=== PATIENT | male | born 1970 ===

== ENCOUNTER 2017-11-16 15:44 | Emergency (ER) | payer OTHER ==
[2017-11-16 15:47] VITALS: RESP 18; TEMP 98.4
[2017-11-16] MEDS ORDERED: TDAP Vaccine 0.5 mL Syr IM ONE (15:53)
--- NOTE | 2017-11-16 16:03 | ED PDOC ---
Arrival/HPI - General Chief Complaint: Abnormal Skin Integrity Time Seen by Provider: 11/16/17 15:50 Historian: Patient - History of Present Illness Narrative History of Present Illness (Text): 11/16/17 16:00 Ghulam Gilmore is a 47 year old male who presents to the emergency department complaining of laceration to left ear and chin after scaffolding fell on him prior to arrival. Patient denies any loss of consciousness or any other complaints at this time. Time/Duration: Prior to Arrival Symptom Onset: Sudden Symptom Course: Improving Activities at Onset: Light Context: Work Past Medical History - Provider Review Nursing Documentation Reviewed: Yes - Psychiatric Hx Psychophysiologic Disorder: No Hx Substance Use: Yes Family/Social History - Physician Review Nursing Documentation Reviewed: Yes Family/Social History: No Known Family HX Smoking Status: Never Smoked Hx Alcohol Use: Yes Frequency of alcohol use: Socially Hx Substance Use: Yes Allergies/Home Meds Allergies/Adverse Reactions: Allergies No Known Allergies Allergy (Verified 11/16/17 15:47) Review of Systems - Physician Review All systems were reviewed & negative as marked: Yes - Review of Systems Constitutional: absent: Fevers, Night Sweats Eyes: absent: Vision Changes ENT: absent: Hearing Changes Respiratory: absent: SOB, Cough Cardiovascular: absent: Chest Pain Gastrointestinal: absent: Abdominal Pain Genitourinary Male: absent: Dysuria, Frequency Musculoskeletal: absent: Arthralgias Skin: Laceration (to left ear and chin) Neurological: absent: Headache, Dizziness Endocrine: absent: Diaphoresis Hemo/Lymphatic: absent: Adenopathy Psychiatric: absent: Anxiety, Depression Physical Exam Vital Signs Reviewed: Yes Vital Signs Temp Pulse Resp BP Pulse Ox 11/16/17 21:33 81 18 135/88 99 11/16/17 17:12 86 18 135/86 100 11/16/17 15:46 98.4 F 92 H 18 137/91 H 100 Temperature: Afebrile Blood Pressure: Hypertensive Pulse: Tachycardic Respiratory Rate: Normal Appearance: Positive for: Well-Appearing, Non-Toxic, Comfortable Pain Distress: None Mental Status: Positive for: Alert and Oriented X 3 - Systems Exam Head: Present: Atraumatic, Normocephalic Pupils: Present: PERRL Extroacular Muscles: Present: EOMI Conjunctiva: Present: Normal Mouth: Present: Moist Mucous Membranes Neck: Present: Normal Range of Motion Respiratory/Chest: Present: Clear to Auscultation, Good Air Exchange. No: Respiratory Distress, Accessory Muscle Use Cardiovascular: Present: Regular Rate and Rhythm, Normal S1, S2. No: Murmurs Abdomen: No: Tenderness, Distention, Peritoneal Signs Back: Present: Normal Inspection Upper Extremity: Present: Normal Inspection. No: Cyanosis, Edema Lower Extremity: Present: Normal Inspection. No: Edema Neurological: Present: GCS=15, CN II-XII Intact, Speech Normal Skin: Present: Laceration (2 cm deep laceration inferior to lower lip and a small 0.5 cm laceration to antihelix of left ear) Psychiatric: Present: Alert, Oriented x 3, Normal Insight, Normal Concentration Medical Decision Making ED Course and Treatment: 11/16/17 16:02 Impression: 47 year old female complaining of laceration to left ear and chin due to a falling scaffold prior to arrival. Plan: -- Head CT w/o contrast -- Boostrix Shot -- Reassess and disposition Progress Notes: 11/16/17 19:14 CT HEAD WITHOUT CONTRAST: Creator : Zoraida Gibson MD IMPRESSION: No acute intracranial abnormality. 11/16/17 19:15 CT MAXILLOFACIAL BONES WITHOUT CONTRAST: Creator : Zoraida Gibson MD IMPRESSION: No acute mandibular or maxillofacial fracture. Soft tissue swelling, laceration and soft tissue emphysema overlying the mandible. 11/23/17 07:48 laceration closed by surgical services asst dr cuello. advised 2 day wound check prophalactic antibiotics ordered - RAD Interpretation Radiology Orders: 11/16/17 15:52 HEAD W/O CONTRAST [CT] Stat 11/16/17 16:28 MAXILLOFACIAL W/O CONTRAST [CT] Stat - Medication Orders Current Medication Orders: Discontinued Medications Bupivacaine HCl (Marcaine 0.25%) 20 ml IJ STAT STA Stop: 11/16/17 18:00 Lidocaine HCl (Lidocaine 1% (20ml)) 5 ml IJ STAT STA Stop: 11/16/17 16:25 Lidocaine/Epinephrine (Lidocaine 1%/Epinephrine 1:[id number] 30 Ml) 30 ml IJ ONCE ONE Stop: 11/16/17 16:25 Morphine Sulfate (Morphine) 5 mg IM STAT STA Stop: 11/16/17 17:38 Last Admin: 11/16/17 17:57 Dose: 5 mg MAR Pain Assessment Document 11/16/17 17:57 GEOVANNA (Rec: 11/16/17 17:58 GEOVANNA [id number]) Pain Reassessment Is this a pain reassessment? Yes Presence of Pain Presence of Pain Yes Pain Scale Used Pain Scale Used Numeric Location Upper or Lower Lower Pain Location Body Site Face Description Intensity of Pain at present 10 IM Administration Charges Document 11/16/17 17:57 GEOVANNA (Rec: 11/16/17 17:58 GEOVANNA [id number]) Injection Site MAR Injection Site Right Deltoid Charges for Administration # of IM Administrations 1 Morphine Sulfate (Morphine) 5 mg IM STAT STA Stop: 11/16/17 18:55 Last Admin: 11/16/17 19:00 Dose: 5 mg MAR Pain Assessment Document 11/16/17 19:00 GEOVANNA (Rec: 11/16/17 19:01 GEOVANNA [id number]) Pain Reassessment Is this a pain reassessment? Yes Presence of Pain Presence of Pain Yes Pain Scale Used Pain Scale Used Numeric Location Upper or Lower Lower Pain Location Body Site Face Description Intensity of Pain at present 10 IM Administration Charges Document 11/16/17 19:00 GEOVANNA (Rec: 11/16/17 19:01 GEOVANNA [id number]) Injection Site MAR Injection Site Right Deltoid Charges for Administration # of IM Administrations 1 Tetanus/Reduced Diphtheria/Acell Pertussis (Boostrix Vaccine Inj) 0.5 ml IM .ONCE ONE Stop: 11/16/17 15:54 Last Admin: 11/16/17 16:02 Dose: 0.5 ml - Scribe Statement The provider has reviewed the documentation as recorded by the Paula Brunner Provider Scribe Attestation: All medical record entries made by the [place] were at my direction and personally dictated by me. I have reviewed the chart and agree that the record accurately reflects my personal performance of the history, physical exam, medical decision making, and the department course for this patient. I have also personally directed, reviewed, and agree with the discharge instructions and disposition. Disposition/Present on Arrival - Present on Arrival Any Indicators Present on Arrival: No History of DVT/PE: No History of Uncontrolled Diabetes: No Urinary Catheter: No History of Decub. Ulcer: No History Surgical Site Infection Following: None - Disposition Have Diagnosis and Disposition been Completed?: Yes Diagnosis: Fall, Laceration Disposition: HOME/ ROUTINE Disposition Time: 07:00 Condition: STABLE Discharge Instructions (ExitCare): Laceration Repair, Closed Head Injury, Preventing Falls Print Language: ANGUILLAN Additional Instructions: please have your wounds rechecked in er or with your pmd/clinic in 48 hours. please follow up with specialist. return to any er with any worsening symptoms or concerns. Prescriptions: Cephalexin [cephalexin] 500 mg PO QID #28 cap Naproxen 500 mg PO BID PRN #14 tablet.dr ZIMMER Reason: Pain, Mild (1-3) Referrals: [facility] [Outside] - Follow up with primary [facility] [place] - Follow up with primary Doron Ren DO [Staff Provider] - Follow up with primary Forms: [email or web address] ([place])
[2017-11-16] MEDS ORDERED: Lidocaine 1% Inj (20ml) IJ STA (16:24)
[2017-11-16] MEDS ORDERED: Lidocaine 1%/Epinephrine 1:100000 30 ml vial IJ ONE (16:24)
[2017-11-16] MEDS ORDERED: HYDROmorphone 1 mg/ml ISec IVP STA (17:19)
[2017-11-16] MEDS ORDERED: HYDROmorphone 0.5 mg/0.5 ml ISec IVP STA (17:22)
--- NOTE | 2017-11-16 17:32 | CT ---
PROCEDURE: CT HEAD WITHOUT CONTRAST. HISTORY: Trauma COMPARISON: None available. TECHNIQUE: Axial computed tomography images were obtained through the head/brain without intravenous contrast. Radiation dose: Total exam DLP = 917.96 mGy-cm. This CT exam was performed using one or more of the following dose reduction techniques: Automated exposure control, adjustment of the mA and/or kV according to patient size, and/or use of iterative reconstruction technique. FINDINGS: HEMORRHAGE: No intracranial hemorrhage. BRAIN: Saavedra-white matter differentiation is preserved. There is no mass, mass effect or abnormal extra-axial fluid collection. VENTRICLES: There is mild age advanced global parenchymal volume loss and proportionate enlargement of the ventricles and cortical sulci. CALVARIUM: The skull base and calvarium are normal. PARANASAL SINUSES: There is a retention cyst/ polyp in the right maxillary alveolus. The remaining included paranasal sinuses are clear. MASTOID AIR CELLS: Predominantly clear. OTHER FINDINGS: None. IMPRESSION: No acute intracranial abnormality.
[2017-11-16] MEDS ORDERED: Morphine 5 MG/ML SYRINGE IM STA ×2 (17:34→18:51)
[2017-11-16] MEDS ORDERED: Bupivacaine 0.25% Inj(30mL) IJ STA (17:59)
--- NOTE | 2017-11-16 18:22 | CT ---
PROCEDURE: CT MAXILLOFACIAL BONES WITHOUT CONTRAST HISTORY: Trauma COMPARISON: None TECHNIQUE: Contiguous axial CT images of the maxillofacial bones were obtained. Coronal and sagittal reformats were generated. Radiation dose: Total exam DLP = 759.58 mGy-cm. This CT exam was performed using one or more of the following dose reduction techniques: Automated exposure control, adjustment of the mA and/or kV according to patient size, and/or use of iterative reconstruction technique. FINDINGS: NASAL BONES: The nasal bones are intact. ORBITS: No acute fracture. PARANASAL SINUSES/ MASTOIDS: There is mild polypoid mucosal thickening in the maxillary sinuses. The remaining included sinuses are clear. The mastoid air cells are clear. MAXILLA: No acute fracture. MANDIBLE/ TEMPOROMANDIBULAR JOINTS: No acute fracture in the mandible. The temporomandibular joints are normally located. There is laceration, soft tissue emphysema and soft tissue swelling overlying the mandible. SKULL BASE: Unremarkable. TEMPORAL BONES: Middle ears and mastoid grossly unremarkable. OTHER FINDINGS: There is significant periodontal disease in the mandible. IMPRESSION: No acute mandibular or maxillofacial fracture. Soft tissue swelling, laceration and soft tissue emphysema overlying the mandible.
[2017-11-16 21:34] VITALS: BP 135/88; PULSE 81; O2SAT 99
== END 2017-11-16 21:36 | disposition home or self-care (01) ==
LOC: ED 15:44
DX: S01.81XA Laceration without foreign body of other part of head, initial encounter (principal); W20.8XXA Other cause of strike by thrown, projected or falling object, initial encounter; Y92.89 Other specified places as the place of occurrence of the external cause; Y99.8 Other external cause status; Z23 Encounter for immunization
CPT/HCPCS: 12011; 70450; 70486; 90471; 90715; 96372; 99282; J2270